=== PATIENT | male | born 1995 | race African-American/Black ===

== ENCOUNTER 2021-08-07 21:41 | Emergency (ER) | payer MEDICAID, OTHER ==
[~2021-08-07] VITALS: Ht 170.2 cm; Wt 118.0 kg
[2021-08-07] MEDS ORDERED: PREDNISONE 20MG TABLET PO ONE (23:15)
[2021-08-07] MEDS ORDERED: ALBUTEROL (0.083%) 2.5MG/3ML NEB HHN ONE (23:15)
[2021-08-08] MEDS ORDERED: P20 MT (00:09)
[2021-08-08] MEDS ORDERED: ALBU18HF2 IH (00:09)
[2021-08-08 00:40] VITALS: BP 144/74
== END 2021-08-08 00:45 | disposition home or self-care (01) ==
LOC: ER 21:41
DX: J45.909 Unspecified asthma, uncomplicated (principal); B34.9 Viral infection, unspecified; Z88.0 Allergy status to penicillin
CPT/HCPCS: 71045; 99283; J7512